=== PATIENT | male | born 1930 | race Caucasian/White ===

== ENCOUNTER 2021-02-23 17:21 | Emergency (ER) | payer MEDICARE, SELFPAY ==
[~2021-02-23] VITALS: Ht 170.2 cm; Wt 108.4 kg
[2021-02-23 18:45] LABS: RED BLOOD COUNT 3.84 M/UL (4.20-5.50); WHITE BLOOD COUNT 9.9 K/UL (4.5-11.0)
[2021-02-23 19:04] LABS: BUN/CREATININE RATIO 24 (0-10)
[2021-02-23] MEDS ORDERED: OMNICEF 300 MG300 MG PO ×2 (20:21→20:22)
[2021-02-24 09:34] LABS: HEMOGLOBIN 12.4 gm/dl (14.0-17.5); RED BLOOD COUNT 3.67 M/UL (4.20-5.50); WHITE BLOOD COUNT 11.8 K/UL (4.5-11.0)
[2021-02-24 09:52] LABS: BUN/CREATININE RATIO 28 (0-10)
== END 2021-02-24 16:50 | disposition home or self-care (01) ==
LOC: ER1 17:21
PROVIDERS: Emergency Medicine
DX: R33.9 Retention of urine, unspecified (principal); R31.9 Hematuria, unspecified; I25.2 Old myocardial infarction; E78.5 Hyperlipidemia, unspecified; I10 Essential (primary) hypertension; Z85.46 Personal history of malignant neoplasm of prostate; Z20.822 Contact with and (suspected) exposure to COVID-19
CPT/HCPCS: 80048; 80053; 81001; 82550; 82553; 83874; 84484; 85025; 85610; 85730; 87086; 94664; 99284; U0002

== ENCOUNTER 2021-04-27 11:45 | Emergency (ER) | payer MEDICARE ==
[~2021-04-27] VITALS: Ht 170.2 cm; Wt 109.8 kg
[~2021-04-27 11:45] MED LIST: OMNICEF 300 MG300 MG PO
== END 2021-04-27 18:08 | disposition home or self-care (01) ==
LOC: ER1 11:45
DX: U07.1 COVID-19 (principal); R19.7 Diarrhea, unspecified; Z23 Encounter for immunization; I10 Essential (primary) hypertension
CPT/HCPCS: 0240U; 99283; M0245